=== PATIENT | female | born 1995 | race Caucasian/White ===

== ENCOUNTER 2021-05-30 21:12 | Emergency (ER) | payer OTHER, MEDICAID, SELFPAY ==
[2021-05-30 21:39] VITALS: BP 146/100; PULSE 68; RESP 17; TEMP 36.5; O2SAT 98; BMI 39.0
--- NOTE | 2021-05-30 22:21 | DI.CT.S_ITS ---
PROCEDURE: CT HEAD/BRAIN WO CON INDICATIONS: dizziness TECHNIQUE: Noncontrast 5 mm thick angled axial sections acquired from the foramen magnum to the vertex, with coronal and sagittal reformats. For radiation dose reduction, the following was used: automated exposure control, adjustment of mA and/or kV according to patient size. COMPARISON: None. FINDINGS: Image quality: Excellent. CSF spaces: Basal cisterns are patent. No extra-axial fluid collections. Ventricles are normal in size and shape. Brain: No midline shift. No intracranial masses or hemorrhage. Naranjo-white matter interface is normal. Skull and face: Calvarium and visualized facial bones are intact, without suspicious lesions. Sinuses: Visualized sinuses and mastoids are clear. IMPRESSION: Unremarkable CT brain Approved by: Jerman Kincaid M.D. on 05/30/2021 at 22:38
[2021-05-30] MEDS: SODIUM CHLORIDE 0.9% 1,000 ML 1000 ML IV (22:42)
[2021-05-30] MEDS: ONDANSETRON 4 MG/2 ML INJ IV (22:42)
[2021-05-30 22:44] VITALS: PULSE 68; O2SAT 97
[2021-05-30 22:45] VITALS: BP 151/95; PULSE 62; O2SAT 97
[2021-05-30 22:52] LABS: Add Manual Diff / Slide Review NO; Basophils Absolute Auto 100 /uL (0-100); Basophils Percent Auto 0.5 % (0-2); Eosinophils Absolute Auto 100 /uL (0-450); Eosinophils Percent Auto 0.3 % (2-4); Hematocrit 43.2 % (36-46); Hemoglobin 15.1 g/dL (12.0-16.0); Lymphocytes Absolute Auto 4300 /uL (1100-4500); Lymphocytes Percent Auto 25.9 % (25-40); Mean Corpuscular Hemoglobin 30.8 PG (26-34); Mean Corpuscular Volume 88.1 fL (80-100); Monocytes Absolute Auto 700 /uL (0-900); Monocytes Percent Auto 4.3 % (3-14); Neutrophils Absolute Auto 11500 /uL (1500-7000); Platelet Count 329 X10^3/uL (150-400); Red Cell Distribution Width 12.3 % (11.6-14.8); White Blood Cell Count 16.7 X10^3/uL (4.5-11.0)
--- NOTE | 2021-05-30 22:56 | ED.DIZZY ---
HPI - Dizziness General Chief Complaint: Dizziness Stated Complaint: Vertigo, Lethargic Time Seen by Provider: 05/30/21 21:18 Source: patient Mode of arrival: Ambulatory History of Present Illness HPI Narrative: 25F biological female with preferred pronoun he/him and goes by [place] presents for recurrence of dizziness. Patient had been seen and evaluated at an outside facility a few days ago for evaluation of an abrupt onset of dizziness that started after bending over and standing back up right. This is significant dizziness was associated with nausea and vomiting and seemed to improve with rest. There was a thorough evaluation, however no imaging, and symptoms seem to improve with meclizine. Overall he has felt quite fatigued for sometime and admits to having little energy. He states that due to issues arising from the COVID pandemic that he has not been on testosterone for many months and his doctors believe he is likely transitioning back to primarily female horomonal predominance. He denies other changes in medications or diet, but does admit to significant levels of stress at work. Related Data Allergies Allergy/AdvReac Type Severity Reaction Status Date / Time No Known Drug Allergies Allergy Verified 05/30/21 22:49 Review of Systems Review of Systems Narrative: GENERAL: Denies chills, fatigue, malaise, fever, sweats. HEENT: Denies sinus pain, ear pain, sore throat, difficulty swallowing, dizziness. RESPIRATORY: Denies dyspnea, cough, wheezing, hemoptysis, sputum. CARDIOVASCULAR: Denies chest pain, palpitations, orthopnea, edema, GASTROINTESTINAL: Denies nausea, vomiting, abdominal pain, diarrhea, constipation, melena. : Denies dysuria, frequency, incontinence, hematuria, urinary retention. MUSCULOSKELETAL: denies weakness, joint pain, or bony pain SKIN: Denies rash, skin lesions, or other NEUROLOGIC: Denies weakness, headache, numbness, change in speech, confusion, seizures, incoordination. PSYCHIATRIC: No concerning psychosocial issues. 12 point review of systems is negative except for those stated above Patient History Social History Smoking Status: Never smoker Smoking Status: Never smoker alcohol intake frequency: other Substance Use Type: does not use Exam Narrative Exam Narrative: GENERAL: [25] year old patient appears stated age. Well-developed patient, in mild distress. HEAD: Atraumatic. Normocephalic. EYES: Pupils equal round and reactive. Extraocular motions intact. No scleral icterus. No injection or drainage. ENT: Nose without bleeding, purulent drainage. Throat without erythema, tonsillar hypertrophy or exudate. Airway patent. NECK: Trachea midline. Non tender CARDIOVASCULAR: Regular rate and rhythm without murmurs, gallops, or rubs. RESPIRATORY: Clear to auscultation. Breath sounds equal bilaterally. No wheezes, rales, or rhonchi. GASTROINTESTINAL: Abdomen soft, non-tender, nondistended. EXTREMITIES: No edema or joint tenderness. BACK: Nontender without deformity or crepitance. No flank tenderness. NEURO: AOx3. SKIN: No rash or erythema of visible areas NIH Stroke Scale 1a. LOC: Patient is alert and keenly responsive (0) 1b. LOC Questions: Patient answers both LOC questions accurately (0) 1c. LOC Commands: Patient performs both tasks correctly (0) 2. Best Gaze: Normal (0) 3. Visual: No visual loss (0) 4. Facial palsy: Normal symmetrical movements (0) 5. Motor arm: No drift (0) 6. Motor leg: No drift (0) 7. Limb ataxia: Absent (0) 8. Sensory: Normal (0) 9. Best language: No aphasia; normal (0) 10. Dysarthria: Normal (0) 11. Extinction and inattention: No abnormality (0) NIHSS: 0 Initial Vital Signs Initial Vital Signs: Vital Signs Temperature 97.7 F 05/30/21 21:39 Pulse Rate 68 05/30/21 21:39 Respiratory Rate 17 05/30/21 21:39 Blood Pressure 146/100 H 05/30/21 21:39 Pulse Oximetry 98 05/30/21 21:39 Course Orders Ordered: ED Orders 05/30/21 22:21 CT head/brain wo con Stat EKG-12 Lead Stat 05/30/21 22:45 Basic Metabolic Panel Stat Complete Blood Count AUTO DIFF Stat Troponin I Stat Discontinued Medications Sodium Chloride (Normal Saline 0.9%) 1,000 mls @ 1,000 mls/hr IV BOLUS ONE Stop: 05/30/21 23:31 Last Infusion: 05/31/21 00:12 Dose: 0 mls/hr Documented by: Admin: 05/30/21 22:42 Dose: 1,000 mls/hr Documented by: KIRILL Ondansetron HCl (Ondansetron 4 Mg/2 Ml Inj) 4 mg IV NOW ONE Stop: 05/30/21 22:33 Last Admin: 05/30/21 22:42 Dose: 4 mg Documented by: KIRILL Vital Signs Vital signs: Vital Signs - 8 hr 05/30/21 21:39 05/30/21 22:44 05/30/21 22:45 Temperature 97.7 F Pulse Rate 68 68 62 Respiratory Rate 17 Blood Pressure 146/100 H 151/95 H Pulse Oximetry 98 97 97 05/30/21 23:00 05/30/21 23:30 05/31/21 00:00 Temperature Pulse Rate 63 58 L 51 L Respiratory Rate 18 14 14 Blood Pressure 138/89 134/77 129/77 Pulse Oximetry 97 96 95 05/31/21 00:30 05/31/21 01:00 Temperature Pulse Rate 53 L 49 L Respiratory Rate 13 12 Blood Pressure 131/71 136/75 Pulse Oximetry 95 95 MDM - Dizziness Lab Data Result diagrams: 05/30/21 22:45 05/30/21 22:45 Labs: Lab Results 05/30/21 05/30/21 Range/Units 22:45 22:45 WBC 16.7 H (4.5-11.0) X10^3/uL RBC 4.90 (4.0-5.2) X10^6/uL Hgb 15.1 (12.0-16.0) g/dL Hct 43.2 (36-46) % MCV 88.1 (80-100) fL MCH 30.8 (26-34) PG MCHC 35.0 (30-36) % RDW 12.3 (11.6-14.8) % Plt Count 329 (150-400) X10^3/uL Neut % (Auto) 69.0 (50-75) % Lymph % (Auto) 25.9 (25-40) % Stanton % (Auto) 4.3 (3-14) % Eos % (Auto) 0.3 L (2-4) % Baso % (Auto) 0.5 (0-2) % Neut # (Auto) 33210 H (6421-5433) /uL Lymph # (Auto) 4300 (2188-1174) /uL Stanton # (Auto) 700 (0-900) /uL Eos # (Auto) 100 (0-450) /uL Baso # (Auto) 100 (0-100) /uL Sodium 139 (137-145) mmol/L Potassium 4.0 (3.4-5.1) mmol/L Chloride 106 (98-107) mmol/L Carbon Dioxide 20 L (22-32) mmol/L BUN 14 (7-17) mg/dL Creatinine 0.64 (0.52-1.04) mg/dL Estimated GFR > 60 (>60) mL/min BUN/Creatinine Ratio 21.9 (6-22) Glucose 101 H (70-100) mg/dL Calcium 9.3 (8.4-10.2) mg/dL Troponin I < 0.012 (0.01-0.034) ng/mL Imaging Data CT scan - head: Radiologist's Impression: Ania Delong?(Jose)??25??F??1995 ? Allergy/Adv: No Known Drug Allergies (More??) Close Head CT (Signed) Jerman Kincaid - 05/30/21 [place] [address] CT Scan Report Signed Patient: Ania Delong MR#: [id number] : 1995 Acct:[id number] Age/Sex: 25 / F Date of Service: 05/30/21 Loc: ED Accession Number: [id number] ?? Procedure: CT head/brain wo con Ordering Provider: Barney Blackman D.O. PROCEDURE:? CT HEAD/BRAIN WO CON ? INDICATIONS:? dizziness ? TECHNIQUE:? Noncontrast 5 mm thick angled axial sections acquired from the foramen magnum to the vertex, with coronal and sagittal reformats.? For radiation dose reduction, the following was used:? automated exposure control, adjustment of mA and/or kV according to patient size.? ? COMPARISON:? None. ? FINDINGS:? Image quality:? Excellent.? ? CSF spaces:? Basal cisterns are patent.? No extra-axial fluid collections.? Ventricles are normal in size and shape.? ? Brain:? No midline shift.? No intracranial masses or hemorrhage.? Naranjo-white matter interface is normal.? ? Skull and face:? Calvarium and visualized facial bones are intact, without suspicious lesions.? ? Sinuses:? Visualized sinuses and mastoids are clear.? ? IMPRESSION:? Unremarkable CT brain ? ? ? Approved by: Jerman Kincaid M.D. on 05/30/2021 at 22:38? MDM Narrative Medical decision making narrative: Patient is reassuring history and physical exam. CT is unremarkable as are labs. Complaints seems most likely related to a peripheral vertigo that is improved with above-stated therapies. Overall his generalized fatigue is likely multifactorial with elements from hormonal fluctuations, depression, even recent administration of antihistamines. We discussed this at length and sure the opinion that there is no indication for further treatment or evaluation from the emergency department. Return precautions have been discussed and questions answered to his apparent satisfaction. Discharge Plan Departure Patient Disposition: Home Clinical Impression: Fatigue, Vertigo Instructions: DI for Vertigo Activity Restrictions/Additional Instructions: *You have been diagnosed with [fatigue, vertigo. As we discussed, your history, physical exam, labs, and CT scan are very reassuring. There is no evidence of any life-threatening diagnosis which would require a specific or immediate intervention. It seems likely that many smaller factors are contributing to the way you feel *What to do: *Please continue to take your regular medications as directed. [] New medication prescriptions sent to your pharmacy: [ ] [ ] New medication written as a paper prescription [ x] No new medications given *Please follow up with your primary care provider in 2-3 days, call for an appointment. Let them know you were seen in the Emergency Department and that we ask that you be seen in follow up. We will electronically transmit a record of today's note if your PCP is in our system *If you do not have a primary care provider please contact the [facility] Resource line at [phone]. They will ask some questions about your medical history and help get you set up with a doctor in the community. *Return to Emergency Department if you should have any new, worsening or concerning symptoms, such as [fever greater than 101 F, shaking chills, worsening pain, persistent vomiting or other bothersome symptoms]
[2021-05-30 23:00] VITALS: BP 138/89; PULSE 63; RESP 18; O2SAT 97
[2021-05-30 23:02] LABS: BUN Creatinine Ratio 21.9 (6-22); Blood Urea Nitrogen 14 mg/dL (7-17); Calcium 9.3 mg/dL (8.4-10.2); Carbon Dioxide 20 mmol/L (22-32); Chloride 106 mmol/L (98-107); Estimated Glomerular Filt Rate > 60 mL/min (>60); Glucose 101 mg/dL (70-100); HEMOLYSIS 28 (0-50); Sodium 139 mmol/L (137-145)
[2021-05-30 23:15] LABS: Troponin I < 0.012 ng/mL (0.01-0.034)
[2021-05-30 23:30] VITALS: BP 134/77; PULSE 58; RESP 14; O2SAT 96
[2021-05-31] VITALS: BP 129/77; PULSE 51; RESP 14; O2SAT 95
[2021-05-31 00:30] VITALS: BP 131/71; PULSE 53; RESP 13; O2SAT 95
[2021-05-31 01:00] VITALS: BP 136/75; PULSE 49; RESP 12; O2SAT 95
== END 2021-05-31 01:32 | disposition home or self-care (01) ==
PROVIDERS: Emergency Provider Emergency Medicine
DX: R53.83 Other fatigue (principal); R42 Dizziness and giddiness
CPT/HCPCS: 36415; 70450; 80048; 84484; 85025; 93005; 96361; 96374; 99284; J2405

== ENCOUNTER 2023-07-27 21:01 | Emergency (ER) | payer OTHER, MEDICAID, SELFPAY ==
[2023-07-27 21:16] VITALS: BP 142/86; PULSE 77; RESP 18; TEMP 36.9; O2SAT 98; BMI 40.6
[2023-07-27 22:57] VITALS: BP 134/85; PULSE 63; TEMP 36.6; O2SAT 99
--- NOTE | 2023-07-27 23:10 | PC.NURSE ---
Pt is seen at for testosterone pellet placement. This last placement was on his left upper buttock. Approximately 07/10/23 [place] noticed some pressure and a pimple head of white at the site. Seen at [facility] and they pushed pellet back in and glue. Seen 2 times for same issue. Today another pellet sitting at entrance and came out during inspection. At this time pt is unsure of how many pellets remain in site. He will call the clinic in the morning to follow up with testosterone levels and possible injectable prescription to local pharmacy.
--- NOTE | 2023-07-27 23:40 | ED_ITS ---
HPI - Skin/Abscess/Foreign Bdy General Chief complaint: Skin/Abscess/Foreign Body Stated complaint: infected incision Time Seen by Provider: 07/27/23 23:06 Source: patient Mode of arrival: Ambulatory Limitations: no limitations History of Present Illness HPI narrative: Patient is a 27-year-old individual who is here for evaluation of potential infection near the site of testosterone plug injections in the left buttocks. Patient stated that the current medications for placed several weeks ago. There have been 3 of the plug testosterone medication that have fallen out. At 1 point there was a concern for an infection and the patient completed a course of antibiotics. Patient also states that at the walk-in clinic the provider there pushed 1 of the plugs back into his skin. Related Data Allergies Allergy/AdvReac Type Severity Reaction Status Date / Time No Known Drug Allergies Allergy Verified 05/30/21 22:49 Review of Systems Constitutional Constitutional: Reports system reviewed and no additional complaints, except as documented Musculoskeletal Musculoskeletal: Reports system reviewed and no additional complaints, except as documented Integumentary/Breasts Skin/Breast: Reports system reviewed and no additional complaints, except as documented Patient History Social History Smoking Status: Never smoker Smoking Status: Never smoker alcohol intake frequency: other Substance Use Type: marijuana Exam Initial Vital Signs Initial Vital Signs: Vital Signs Temperature 98.4 F 07/27/23 21:16 Pulse Rate 77 07/27/23 21:16 Respiratory Rate 18 07/27/23 21:16 Blood Pressure 142/86 H 07/27/23 21:16 Pulse Oximetry 98 07/27/23 21:16 Oxygen Delivery Method Room Air 07/27/23 21:16 Skin Other: There is a wound on the left buttocks that is pinpoint in nature. No surrounding erythema. Some serosanguineous drainage from the area. No tenderness to palpation. Course Vital Signs Vital signs: Vital Signs - 8 hr 07/27/23 21:16 07/27/23 22:57 07/27/23 22:57 Temperature 98.4 F 98 F Pulse Rate 77 63 Respiratory Rate 18 Blood Pressure 142/86 H 134/85 Pulse Oximetry 98 99 Oxygen Delivery Method Room Air Room Air MDM - Skin/Abscess/Foreign Bdy MDM Narrative Medical decision making narrative: Bedside ultrasound shows 3 distinct objects in the left buttocks which are consistent with the 3 remaining testosterone medication plugs. There is no abscess seen. No cellulitis around the wound on the buttocks. No indication for antibiotics. There was no signs for incision and drainage. Discussed with the patient to contact the provider who ordered the medications to discuss whether or not new medications need to be administered. Patient was given return precautions. Discharge Plan Departure Patient Disposition: Home Clinical Impression: Open wound of skin Activity Restrictions/Additional Instructions: There was no signs of an infection today of the skin wound. You can shower like normal and wash the area with soap and water. I do recommend that you contact your providers and [facility] to discuss replacing the medication like we discussed. Referrals: Deepthi Thomason PA-C [Primary Care Provider] - Stand Alone Forms: Patient Portal/API
== END 2023-07-27 23:52 | disposition home or self-care (01) ==
PROVIDERS: Emergency Provider Emergency Medicine; PCP Physician Assistant
DX: T14.8XXA Other injury of unspecified body region, initial encounter (principal)
CPT/HCPCS: 99281